=== PATIENT | male | born 1975 | race Caucasian/White ===

== ENCOUNTER 2020-07-25 09:46 | Emergency (ER) | payer BC, OTHER ==
[~2020-07-25] VITALS: Ht 180.3 cm; Wt 98.0 kg
--- NOTE | 2020-07-25 10:17 | NUR ---
PT CAME IN CO EPIGASTRIC PAIN AND BRIGHT VERNELL BLOOD THAT "DRIPS OUT AFTER I HAVE A BM". PT ALSO CO OF GAINING 40LBS IN THE PAST 3 MONTHS. PT RESTING IN [facility]. MD BEDSIDE. CONNECTED TO MONITORING EQUIPMENT
[2020-07-25] MEDS ORDERED: SODIUM CHLORIDE FLUSH 10ML SYR IVF ONE (10:30)
[2020-07-25] MEDS ORDERED: KETOROLAC 30 MG/1 ML IVPush ONE (10:30)
[2020-07-25] MEDS ORDERED: KETOROLAC 30 MG/1 ML ONE (10:37)
[2020-07-25 11:06] LABS: BASOPHILS % (AUTO) 1 % (0-1); EOSINOPHILS % (AUTO) 0 % (1-7); LYMPHOCYTES % (AUTO) 45 % (22-44); MEAN CORPUSCULAR HEMOGLOBIN 30.3 pg (27.5-34.5); MEAN CORPUSCULAR HGB CONC 34.5 g/dL (33.2-36.2); MONOCYTES % (AUTO) 10 % (2-9); NEUTROPHILS % (AUTO) 44 % (42-75); PLATELET COUNT 195 x10^3/uL (130-400); RED BLOOD COUNT 4.55 x10^6/uL (4.38-5.82); RED CELL DISTRIBUTION WIDTH 13.1 % (9.4-14.8)
[2020-07-25 11:08] LABS: MD NO
[2020-07-25 11:10] LABS: ANION GAP 7 mmol/L (5-15); CALCIUM 8.9 mg/dL (8.5-10.1); CHLORIDE 107 mmol/L (98-107)
--- NOTE | 2020-07-25 11:13 | NUR ---
PT MEDCIATED PER JUL. RESTING IN [facility]. VSS
[2020-07-25 11:21] LABS: ALANINE AMINOTRANSFERASE 43 U/L (12-78); ALKALINE PHOSPHATASE 66 U/L (45-117); BILIRUBIN,TOTAL 0.4 mg/dL (0.2-1.0); CREATININE 0.87 mg/dL (0.7-1.3); TOTAL PROTEIN 7.4 g/dL (6.4-8.2)
--- NOTE | 2020-07-25 11:44 | NUR ---
PT RESTING IN [facility]. NAD. VSS. AWAITING LAB RESULTS
[2020-07-25] MEDS ORDERED: HYDROmorphone 1 MG/ML, 1ML INJ IVPush PRN (12:00)
--- NOTE | 2020-07-25 12:07 | NUR ---
PT BACK FROM CT. AMBULATED TO BATHROOM WITH STEADY GATE
[2020-07-25] MEDS ORDERED: HYDROmorphone 1 MG/ML, 1ML INJ ONE (12:13)
[2020-07-25] MEDS ORDERED: DIPHENHYDRAMINE 50 MG/ML, 1ML ONE (12:22)
--- NOTE | 2020-07-25 12:26 | NUR ---
PT REPORTS ITCHING AFTER DILAUDID. 25MG BENADRYL GIVEN PER VERBAL ORDER FROM
[2020-07-25] MEDS ORDERED: DIPHENHYDRAMINE 50 MG/ML, 1ML IVPush ONE (12:30)
[2020-07-25 13:05] VITALS: BP 132/85
--- NOTE | 2020-07-25 13:06 | NUR ---
PT IN BED WITH NO SIGNS OR SYMPTOMS OF ACUTE DISTRESS NOTED, SLEEPY BUT AROUSABLE TO LIGHT TACTILE STIMULATION, DENIES PAIN OR DISCOMFORT. PT READY TO DC, VERBALIZES UNDERSTANDING AND AGREEMENT WITH PLAN OF CARE
== END 2020-07-25 13:23 | disposition home or self-care (01) ==
LOC: ED 11:04
DX: K60.0 Acute anal fissure (principal); K62.5 Hemorrhage of anus and rectum; K59.00 Constipation, unspecified; R53.83 Other fatigue; R63.5 Abnormal weight gain; R51.9 Headache, unspecified
CPT/HCPCS: 36415; 70450; 74022; 80053; 82533; 83605; 84439; 84443; 85025; 96374; 96375; 99285; J1170; J1200; J1885

== ENCOUNTER 2020-12-21 18:23 | Emergency (ER) | payer BC ==
[~2020-12-21] VITALS: Ht 180.3 cm; Wt 98.7 kg
[2020-12-21 19:47] LABS: BASOPHILS % (AUTO) 1 % (0-1); EOSINOPHILS % (AUTO) 3 % (1-7); LYMPHOCYTES % (AUTO) 45 % (22-44); MEAN CORPUSCULAR HEMOGLOBIN 30.6 pg (27.5-34.5); MEAN CORPUSCULAR HGB CONC 34.7 g/dL (33.2-36.2); MEAN PLATELET VOLUME 6.8 fL (7.4-10.4); MONOCYTES % (AUTO) 8 % (2-9); NEUTROPHILS % (AUTO) 44 % (42-75); PLATELET COUNT 243 x10^3/uL (130-400); RED BLOOD COUNT 4.49 x10^6/uL (4.38-5.82)
[2020-12-21 19:49] LABS: CHLORIDE 104 mmol/L (98-107)
[2020-12-21 19:58] LABS: ANION GAP 3 mmol/L (5-15); TROPONIN I < 0.015 ng/mL (0.000-0.045)
--- NOTE | 2020-12-21 21:23 | NUR ---
PT LAYING IN BED, A/OX4, VSS, SIGNIFICANT OTHER AT BEDSIDE, ALL NEEDS IN REACH, CALL LIGHT IN REACH, NAD AT THIS TIME
[2020-12-21] MEDS ORDERED: DIPHENHYDRAMINE 50 MG/ML, 1ML ONE (22:16)
[2020-12-21] MEDS ORDERED: OMNIPAQUE 350 MG/ML, 75ML BOTTLE ONE (22:19)
--- NOTE | 2020-12-21 22:19 | NUR ---
PT RETURNED FROM CT AND WAS HAVING GENERALIZED ITCHING AND A FEW HIVES ON HIS ARM, NOTIFED, IV BENADRYL ORDERED AND ADMINISTERED
[2020-12-21] MEDS ORDERED: DIPHENHYDRAMINE 50 MG/ML, 1ML IV ONE (22:30)
--- NOTE | 2020-12-21 22:48 | NUR ---
PT REPORTS FEELING BETTER AFTER IV BENADRYL ADMINISTRATION, PT NO LONGER ITCHY, VSS
--- NOTE | 2020-12-21 23:09 | NUR ---
PT LAYING IN BED WATHCING TV, SIGNIFICANT OTHER AT BEDSIDE, ALL NEEDS IN REACH, CALL LIGHT IN REACH, NAD AT THIS TIME, VSS
[2020-12-22 00:17] VITALS: BP 121/79
== END 2020-12-22 00:19 | disposition home or self-care (01) ==
LOC: ED 23:26
DX: R07.89 Other chest pain (principal); R06.02 Shortness of breath; R11.10 Vomiting, unspecified; R94.31 Abnormal electrocardiogram [ECG] [EKG]
CPT/HCPCS: 36415; 71045; 71275; 80048; 82040; 83880; 84484; 85025; 85379; 93005; 96374; 99285; J1200; Q9967